=== PATIENT | male | born 1990 | race African-American/Black ===

== ENCOUNTER 2019-05-03 02:13 | Inpatient (IN) | payer OTHER ==
[~2019-05-03] VITALS: Ht 182.9 cm; Wt 90.7 kg
[2019-05-03 03:02] LABS: HEMATOCRIT 44.5 % (42.0-52.0); HEMOGLOBIN 15.4 g/dl (13.5-17.5); MEAN CORPUSCULAR HEMOGLOBIN 30.6 pg (27.0-33.0); MEAN CORPUSCULAR HGB CONC 34.6 g/dl (32.0-36.5); MEAN CORPUSCULAR VOLUME 88.3 fl (80.0-96.0); PLATELET COUNT, AUTOMATED 258 10^3/uL (150-450); RED BLOOD COUNT 5.04 10^6/uL (4.30-6.10)
[2019-05-03 03:27] LABS: AMPHETAMINES LEVEL URINE NEGATIVE (NEGATIVE); BARBITURATES URINE NEGATIVE (NEGATIVE); BENZODIAZEPINES URINE NEGATIVE (NEGATIVE); CANNABINOIDS URINE NEGATIVE (NEGATIVE); COCAINE METABOLITE URINE NEGATIVE (NEGATIVE); METHADONE URINE NEGATIVE (NEGATIVE); OPIATES URINE NEGATIVE (NEGATIVE); PHENCYCLIDINE URINE NEGATIVE (NEGATIVE)
[2019-05-03 03:42] LABS: ACETAMINOPHEN LEVEL < 2.0 UG/ML (10.0-30.0); ALBUMIN 4.5 GM/DL (3.2-5.2); ALT/SGPT 52 U/L (12-78); BILIRUBIN,DIRECT 0.2 MG/DL (0.0-0.2); BILIRUBIN,TOTAL 1.1 MG/DL (0.2-1.0); BLOOD UREA NITROGEN 10 MG/DL (7-18); CALCIUM LEVEL 8.8 MG/DL (8.5-10.1); CARBON DIOXIDE LEVEL 23 MEQ/L (21-32); CHLORIDE LEVEL 108 MEQ/L (98-107); ETHYL ALCOHOL (ETHANOL) < 0.003 % (0.000-0.010); GLOMERULAR FILTRATION RATE > 60.0 (>60); GLUCOSE, FASTING 72 MG/DL (70-100); POTASSIUM SERUM 3.6 MEQ/L (3.5-5.1); SALICYLATE LEVEL < 1.7 MG/DL (5.0-30.0); SODIUM LEVEL 142 MEQ/L (136-145); THYROID STIMULATING HORMONE 0.696 uIU/ML (0.358-3.740); TOTAL PROTEIN 8.1 GM/DL (6.4-8.2)
[2019-05-03] MEDS ORDERED: MELA1TAB9 PO (06:10)
[2019-05-03] MEDS ORDERED: VITAD1000T PO (06:10)
[2019-05-03] MEDS ORDERED: LEXA1TAB PO (06:10)
[2019-05-03] MEDS ORDERED: NICO2GUM43 MT (06:10)
[2019-05-03] MEDS ORDERED: traZODone 50 MG TAB PO PRN (06:15)
[2019-05-03] MEDS ORDERED: MOM 30ML SUSPENSION UDC PO PRN (06:15)
[2019-05-03] MEDS ORDERED: ACETAMINOPHEN TAB 650MG DOSE (2X325MG) PO PRN (06:15)
[2019-05-03] MEDS ORDERED: MAALOX 30 ML SUSP *UDC PO PRN (06:15)
[2019-05-03 07:19] VITALS: BP 127/62
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
[2019-05-03] MEDS: NICOTINE 21MG/24HR 1 EA TRANSDERMAL TD SCH (09:00)
--- NOTE | 2019-05-03 12:12 | HPEPDOC ---
General Date of Admission May 03, 2019 at 06:04 Date of Service: May 03, 2019 Chief Complaint The patient is a 28-year-old male admitted with a reason for visit of Unspecified Depressive Disorder. Source: Patient Exam Limitations: No limitations Associated Symptoms: Denies Symptoms History of Present Illness Mr. Lama is a 20-year-old male who is admitted to the behavioral health unit with a diagnosis of unspecified depressive disorder. When seen, patient reported that he had become very frustrated at work (he is active ), he was brought to the ED by his leadership after expressing suicidal thoughts out of anger and frustration. Patient has denied any current thoughts of suicidal or homicidal ideation. He has denied any new or worsening medical issues. Please see review of systems. Home Medications Scheduled Cholecalciferol (Vitamin D3) (Vitamin D3) 1,000 Unit Tablet, 1,000 UNITS PO DAILY, (Reported) Escitalopram Oxalate (Lexapro) 10 Mg Tablet, 10 MG PO DAILY, (Reported) Melatonin (Melatonin) 5 Mg Tablet, 5 MG PO QHS, (Reported) Scheduled PRN Nicotine Polacrilex (Nicotine Gum) 2 Mg Gum, 2 MG MT Q2H PRN for SMOKING CESSATION, (Reported) Allergies Coded Allergies: No Known Allergies (Verified Allergy, Unknown, 05/03/19) Past Medical History Medical History Unremarkable Surgical History None Family History Significant Family History: Noncontributory Social History * Smoker: current smoker, cigarettes (up to one pack per day) Alcohol: Denies Drugs: denies A-FIB/CHADSVASC A-FIB History Current/History of A-Fib/PAF?: No Current PO Anticoag Therapy: No Review of Systems Constitutional: Denies: Chills, Fever, Night Sweats Eyes: Denies: Pain ENT: Denies: Head Aches Skin: Denies: Rash Pulmonary: Denies: Dyspnea, Cough Cardiovascular: Denies: Chest Pain, Palpitations, Edema Gastrointestinal: Denies: Nausea, Vomiting, Abdominal Pain, Diarrhea Genitourinary: Denies: Dysuria, Frequency, Incontinence Hematologic: Reports: Bleeding Excessively; Denies: Bruising Musculoskeletal: Denies: Neck Pain, Back Pain, Joint Pain, Muscle Pain, Spasms Neurological: Denies: Weakness, Numbness Psych: Reports: Anxiety, Depression; Denies: Memory Issues, Thoughts of Self Harm, Thoughts of Harming Other Physical Examination General Exam: Positive: Alert, Cooperative, No Acute Distress Eye Exam: Positive: PERRLA, Conjunctiva & lids normal, EOMI; Negative: Sclera icteric ENT Exam: Positive: Atraumatic, Mucous membr. moist/pink, Pharynx Normal, Tongue Midline; Negative: Pharyngeal Edema Neck Exam: Positive: Supple; Negative: thyromegaly, Lymphadenopathy Chest Exam: Positive: Clear to auscultation, Normal air movement Heart Exam: Positive: Rate Normal, Regular Rhythm, Normal S1, Normal S2; Negative: Murmurs, Rubs Telemetry: Positive: No significant arrhythmia Abdomen Exam: Positive: Normal bowel sounds, Soft; Negative: Tenderness Extremity Exam: Positive: Normal pulses; Negative: Clubbing, Cyanosis, Edema Skin Exam: Positive: Nl turgor and temperature Neuro Exam: Positive: Normal Gait, Normal Speech, Strength at 5/5 X4 ext, Cranial Nerves 3-12 NL Psych Exam: Positive: Mood NL, Oriented x 3 Vital Signs Vital Signs Date Time Temp Pulse Resp B/P (MAP) Pulse Ox O2 Delivery O2 Flow Rate FiO2 05/03/19 07:19 98.4 86 16 127/62 (83) 100 Room Air Laboratory Data Labs 24H Laboratory Tests 2 05/03/19 02:50: Nucleated Red Blood Cells % (auto) 0.0, Anion Gap 11, Glomerular Filtration Rate > 60.0, Calcium Level 8.8, Total Bilirubin 1.1H, Direct Bilirubin 0.2, Aspartate Amino Transf (AST/SGOT) 24, Alanine Aminotransferase (ALT/SGPT) 52, Alkaline Phosphatase 91, Total Protein 8.1, Albumin 4.5, Albumin/Globulin Ratio 1.25, Thyroid Stimulating Hormone (TSH) 0.696, Salicylates Level < 1.7L, Urine Opiates Screen NEGATIVE, Urine Methadone Screen NEGATIVE, Acetaminophen Level < 2.0L, Urine Barbiturates Screen NEGATIVE, Urine Phencyclidine Screen NEGATIVE, Urine Amphetamines Screen NEGATIVE, Urine Benzodiazepines Screen NEGATIVE, Urine Cocaine Metabolite Screen NEGATIVE, Urine Cannabinoids Screen NEGATIVE, Ethyl Alcohol Level < 0.003 CBC/BMP Laboratory Tests 05/03/19 02:50 Assessment/Plan Mr. Lama is a 20-year-old male who is admitted to the behavioral health unit with a diagnosis of unspecified depressive disorder. When seen, patient reported that he had become very frustrated at work (he is active ), he was brought to the ED by his leadership after expressing suicidal thoughts out of anger and frustration. Patient has denied any current thoughts of suicidal or homicidal ideation. He has denied any new or worsening medical issues. Please see review of systems. Depressive disorder. Management per psychiatry. Medicine will sign off at this time. Please re-consult as needed. Plan / VTE VTE Prophylaxis Ordered?: No SINA RAMSAY PA-C May 03, 2019 12:12
[2019-05-03 16:19] VITALS: BP 110/58
[2019-05-04 06:39] VITALS: BP 106/59
[2019-05-04] MEDS: NICOTINE 21MG/24HR 1 EA TRANSDERMAL TD SCH (09:00)
--- NOTE | 2019-05-04 10:50 | MHDSPDOC ---
[facility] Discharge Summary Discharge Summary DATE OF ADMISSION: May 03, 2019 at 06:04 DATE OF DISCHARGE: 05/04/19 Discharge Flavio Lama MRN: N/A Date of : N/A Date of Service: 05/04/2019 Diagnoses Unspecified depressive disorder. Unclear if adjustment versus fabrication, due to his reported statements. Cluster B personality traits. 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 The patient reports that although he was angry with his chain of command, he had no homicidal thoughts towards them. He reports generally some hopelessness, anxiety and helplessness. The patient is notably fixated on the events that have brought him in, perceiving that these issues are the primary thing that brought him in. He reports that prior to his engagement in the field, he had been doing quite well and his depression had been well controlled. He reported that he was on medications such as Lexapro and an another anxiety med, but he reported these made him oversedated. Consultants Involved Hospitalist/PCP screening Treatment and Progress On The Unit The patient was admitted to the inpatient unit. He was stopped on his Lexapro, as he reported it made him feel sedated. The patient did well on our unit and his reported suicidality did not manifest. He did not have any behavioral problems and attended groups at times. He was notably engaged in splitting with full-term behavioral health, as he had been calling them saying that he was not ready and adding various preconditions to him returning. The patient eventually agreed after discussion with his outpatient therapist and requested discharge. Discharge Assessment The patient, a 28-year-old man with a history of reported depression and likely cluster B personality traits presents after getting into an argument with another soldier. The patient at the time of discharge did not meet criteria for involuntary admission/extension due to having a normal mental status exam, fair insight into the situation, They are engaged in the discharge process, as well as being friendly and amenable in behavioral control and havent been engaging in any observed concerning behavior or ideation recently. They decline voluntary extension/admission at this time and must be discharged in good jeanine, as Im unable to make a case for holding the patient against their will. They may have historical risk factors of admissions and other interactions with psychiatry however, those are not modifiable from a clinical perspective. The patient will need to be discharged in good jeanine. Mental Status Examination General: Well dressed with good hygiene Speech: Spontaneous and fluid Thought processes: Linear and logical MSK: Smooth and coordinated gait, no signs of tremors or involuntary orofacial movements Thought content: Future orientated Abstract reasoning, and computation: Intact Description of associations: Intact Description of abnormal or psychotic thoughts: Denies any suicidal or homicidal ideation. Denies any auditory or visual hallucinations. Does not appear to be responding to internal stimuli. Does not appear to be endorsing any bizarre or paranoid ideation. Judgment: fair Insight: fair Orientation: Alert and orientated 3 Cognition: Grossly normal Recent and remote memory: Intact Attention span and concentration: Intact Fund of knowledge: Adequate Mood: "okay" Affect: Euthymic with a full range Follow Up The social work team worked during the predischarge meeting in order to evaluate for further issues of lethality address them fully before discharge. They worked on safety planning with the patient's family members in order to ensure that the patient will have a safe and effective discharge. Time Spent The amount of time spent in the coordination of care for this patient was approximately 50 minutes. Tuesday Vital Signs/I&Os Vital Signs Date Time Temp Pulse Resp B/P (MAP) Pulse Ox O2 Delivery O2 Flow Rate FiO2 05/04/19 06:39 98.5 68 18 106/59 (75) Room Air 05/03/19 07:19 100 Medications Scheduled Cholecalciferol (Vitamin D3) (Vitamin D3) 1,000 Unit Tablet, 1,000 UNITS PO DAILY, (Reported) Melatonin (Melatonin) 5 Mg Tablet, 5 MG PO QHS, (Reported) Scheduled PRN Nicotine Polacrilex (Nicotine Gum) 2 Mg Gum, 2 MG MT Q2H PRN for SMOKING CESSATION, (Reported) Allergies Coded Allergies: No Known Allergies (Verified Allergy, Unknown, 05/03/19) RENE LANGE DO May 04, 2019 10:50
== END 2019-05-04 12:30 | disposition home or self-care (01) | DRG 881 ==
LOC: M ED 02:13 → M ED INP 06:04 → M PSY 07:06
PROVIDERS: ADMIT Psychiatry & Neurology Psychiatry; ATTEND Psychiatry & Neurology Addiction Medicine
DX: F32.9 Major depressive disorder, single episode, unspecified (principal); Z62.810 Personal history of physical and sexual abuse in childhood; F60.89 Other specific personality disorders; Z79.899 Other long term (current) drug therapy; F17.210 Nicotine dependence, cigarettes, uncomplicated; Z56.4 Discord with boss and workmates